=== PATIENT | male | born 1985 | race Caucasian/White ===

== ENCOUNTER 2017-01-31 23:07 | Emergency (ER) | payer MEDICARE ==
[2017-01-31 23:31] LABS: URINE BILIRUBIN NEGATIVE (NEGATIVE); URINE BLOOD NEGATIVE (NEGATIVE); URINE GLUCOSE (UA) NORMAL (NORMAL); URINE KETONE NEGATIVE (NEGATIVE); URINE LEUKOCYTE ESTERASE NEGATIVE (NEGATIVE); URINE NITRATE NEGATIVE (NEGATIVE); URINE PROTEIN NEGATIVE (NEGATIVE); UROBILINOGEN NORMAL mg/dL (<1.0)
[2017-01-31 23:46] LABS: BASO # 0.1 10_X3_uL (0.0-0.1); BASO % 0.6 % (0.2-1.2); EOS # 0.2 10_X3_uL (0.0-0.5); EOS % 1.4 % (0.8-7.0); GRAN # 6.2 10_X3_uL (1.8-5.4); GRAN % 52.4 % (34.0-67.9); HEMATOCRIT 45.8 % (40-51); HEMOGLOBIN 16.4 g/dL (13.7-17.5); LYMPH # 3.9 10_X3_uL (1.3-3.6); MEAN CORPUSCULAR HEMOGLOBIN 30.9 pg (27.0-33.0); MEAN CORPUSCULAR HGB CONC 35.8 g/dL (32.0-36.0); MEAN CORPUSCULAR VOLUME 86.4 fL (79-92); MONO # 1.5 10_X3_uL (0.3-0.8); MONO % 12.6 % (5.3-12.2); PLATELET COUNT 422 x10_3/uL (163-337); RED CELL DISTRIBUTION WIDTH 12.1 % (11.6-14.4); WHITE BLOOD COUNT 11.8 x10_3/uL (4.2-9.1)
[2017-01-31 23:58] LABS: CALCIUM 8.8 mg/dL (8.7-10.7); CARBON DIOXIDE 26 mmol/L (21-32); CREATININE 0.9 mg/dL (0.6-1.3); GLUCOSE,RANDOM 104 mg/dL (70-99); POTASSIUM 3.5 mmol/L (3.5-5.1); SODIUM 138 mmol/L (136-145)
[2017-02-01] LABS: BLOOD UREA NITROGEN 19 mg/dL (7-18)
== END 2017-02-01 00:46 | disposition home or self-care (01) ==
LOC: ER 23:07
PROVIDERS: General Practice
DX: N20.0 Calculus of kidney (principal); R10.9 Unspecified abdominal pain; F17.210 Nicotine dependence, cigarettes, uncomplicated; Z79.899 Other long term (current) drug therapy
CPT/HCPCS: 36415; 74150; 80048; 81003; 85025; 96372; 99284-25